=== PATIENT | female | born 1930 | race Caucasian/White ===

== ENCOUNTER 2019-11-06 18:10 | Inpatient (IN) | payer MEDICARE, OTHER ==
[~2019-11-06] VITALS: Ht 152.4 cm; Wt 80.3 kg
[2019-11-06 18:50] LABS: BASOPHILS # (AUTO) 0.1 /CMM (0.0-0.2); BASOPHILS % (AUTO) 0.7 % (0.0-2.0); EOSINOPHILS % (AUTO) 1.5 % (0.0-6.0); HEMATOCRIT 42 % (33-45); HEMOGLOBIN 13.7 g/dL (11.5-14.8); LYMPHOCYTES # (AUTO) 2.6 /CMM (0.8-4.8); LYMPHOCYTES % (AUTO) 24.6 % (20.0-44.0); MEAN CORPUSCULAR HGB CONC 33 g/dl (31.0-36.0); MEAN CORPUSCULAR VOLUME 90 fL (82-100); MONOCYTES # (AUTO) 0.6 /CMM (0.1-1.30); MONOCYTES % (AUTO) 5.5 % (2.0-12.0); NEUTROPHILS % (AUTO) 67.7 % (43.0-81.0); PLATELET COUNT (AUTO) 288 /CMM (150-450); WHITE BLOOD COUNT (AUTO) 10.4 K/uL (4.3-11.0)
[2019-11-06 18:57] LABS: CALCIUM, SERUM 9.3 mg/dL (8.5-10.1); CARBON DIOXIDE 27 mmol/L (21-32); CHLORIDE 100 mmol/L (98-107); CREATININE 1.1 mg/dL (0.6-1.3); GLUCOSE 322 mg/dL (74-106); POTASSIUM 4.1 mmol/L (3.5-5.1); SODIUM SERUM 136 mmol/L (136-145); UREA NITROGEN, BLOOD 25 mg/dL (7-18)
[2019-11-06 19:03] LABS: ACETAMINOPHEN < 2 ug/ml (10-30); ALANINE AMINOTRANSFERASE 19 U/L (12-78); ALBUMIN 3.3 g/dL (3.4-5.0); ALCOHOL, BLOOD < 3 mg/dL (0-0); ALKALINE PHOSPHATASE 84 U/L (46-116); ASPARTATE AMINOTRANSFERASE 14 U/L (15-37); BILIRUBIN,DIRECT 0.1 mg/dL (0.0-0.2); BILIRUBIN,TOTAL 0.2 mg/dL (0.2-1.0); SALICYLATE 1.5 mg/dL (2.8-20.0); TOTAL PROTEIN, SERUM 7.2 g/dL (6.4-8.2)
[2019-11-06 19:26] LABS: APPEARANCE,URINE Clear (CLEAR); BILIRUBIN,URINE Negative (NEGATIVE); BLOOD, URINE Negative Ery/uL (NEGATIVE); COLOR,URINE Yellow (YELLOW); KETONES,URINE Negative (NEGATIVE); LEUKOCYTE ESTERASE ,URINE Small (NEGATIVE); NITRITE, URINE Negative (NEGATIVE); PH,URINE 5.5 (5.0-8.0); PROTEIN,URINE Negative (NEGATIVE); UGLUCOSE 500 MG/DL mg/dL (NEGATIVE); UROBILINOGEN,URINE 0.2 EU/dL (0.2)
[2019-11-06 19:36] LABS: HYALINE CASTS, URINE Few /LPF (None Seen); SQUAMOUS EPITHELIAL CELL,UR Few /HPF (None Seen)
[2019-11-06 19:37] LABS: BACTERIA,URINE Few /HPF (None Seen); RBC,URINE 0-2 /HPF (0-2)
[2019-11-06] MEDS ORDERED: INSULIN REGULAR, HUMAN 100 UNIT/ML 10 ML VIAL SQ ONE (20:30)
[2019-11-06 22:30] VITALS: BP 119/78
[2019-11-06] MEDS ORDERED: MAGNESIUM HYDROXIDE 30 ML UDC PO PRN (22:30)
[2019-11-06] MEDS ORDERED: TEMAZEPAM 7.5 MG CAPSULE PO PRN (22:30)
[2019-11-06] MEDS ORDERED: MAG HYDROX/AL HYDROX/SIMETH 30 ML UDC PO PRN (22:30)
[2019-11-06] MEDS ORDERED: BLOOD SUGAR DIAGNOSTIC 1 EACH STRIP IN ONE (22:30)
[2019-11-06] MEDS ORDERED: LORAZEPAM 0.5 MG TABLET PO PRN (22:30)
[2019-11-06] MEDS ORDERED: LATA2.5D7 OP (23:41)
[2019-11-06] MEDS ORDERED: MEMA10TA56 PO (23:41)
[2019-11-06] MEDS ORDERED: GALA12TA PO (23:41)
[2019-11-06] MEDS ORDERED: INSU100V11 (23:41)
[2019-11-06] MEDS ORDERED: BRIM10DR (23:41)
[2019-11-06] MEDS ORDERED: INSU100V10 SQ (23:41)
[2019-11-06] MEDS ORDERED: LEVO112T7 PO (23:41)
[2019-11-06] MEDS ORDERED: FURO20TA4 PO (23:41)
[2019-11-07] MEDS ORDERED: DEXTROSE 50%-WATER 50 ML DISP.SYRIN IV PRN
[2019-11-07] MEDS ORDERED: INSULIN DETEMIR 100 UNIT/ML CARTRIDGE SQ SCH
[2019-11-07] MEDS: CEPHALEXIN MONOHYDRATE 500 MG CAPSULE PO SCH ×3 (01:40→21:31)
[2019-11-07 08:00] VITALS: BP 134/60
[2019-11-07] MEDS: BLOOD SUGAR DIAGNOSTIC 1 EACH STRIP IN SCH ×4 (08:12→21:39)
[2019-11-07] MEDS: INSULIN REGULAR, HUMAN 100 UNIT/ML 3 ML VIAL SQ PRN ×4 (08:18→22:53)
[2019-11-07] MEDS: BRIMONIDINE TARTRATE OPHT SOLN 5 ML BOTTLE EACHEYE SCH ×3 (09:00→18:26)
[2019-11-07 10:23] LABS: THYROID STIMULATING HORMONE 9.359 uIU/mL (0.358-3.74)
[2019-11-07] MEDS: LEVOTHYROXINE SODIUM 112 MCG TABLET PO SCH (13:13)
[2019-11-07] MEDS: FUROSEMIDE 20 MG TABLET PO SCH (13:14)
[2019-11-07] MEDS: MEMANTINE HCL 5 MG TABLET PO SCH (13:14)
[2019-11-07] MEDS: GALANTAMINE HYDROBROMIDE 4 MG TABLET PO SCH ×2 (13:15→18:27)
[2019-11-07] MEDS: ACETAMINOPHEN 325 MG TABLET PO PRN (13:23)
[2019-11-07 16:00] VITALS: BP 121/58
[2019-11-07 20:00] VITALS: BP 120/62
[2019-11-07 20:39] VITALS: BP 120/62
[2019-11-07] MEDS: DIVALPROEX SODIUM 125 MG TABLET.DR PO SCH (21:31)
[2019-11-07] MEDS: LATANOPROST EYE DROP 0.005% 2.5 ML BOTTLE EACHEYE SCH (21:31)
[2019-11-07] MEDS: INSULIN GLARGINE, 100 UNIT/ML CARTRIDGE SQ SCH (21:57)
[2019-11-08] MEDS: ACETAMINOPHEN 325 MG TABLET PO PRN ×2 (02:09→17:33)
[2019-11-08] MEDS: BLOOD SUGAR DIAGNOSTIC 1 EACH STRIP IN SCH ×4 (08:16→21:16)
[2019-11-08] MEDS: INSULIN REGULAR, HUMAN 100 UNIT/ML 3 ML VIAL SQ PRN ×3 (08:44→21:18)
[2019-11-08] MEDS: BRIMONIDINE TARTRATE OPHT SOLN 5 ML BOTTLE EACHEYE SCH ×3 (08:46→18:22)
[2019-11-08] MEDS: GALANTAMINE HYDROBROMIDE 4 MG TABLET PO SCH ×2 (08:46→18:22)
[2019-11-08] MEDS: CEPHALEXIN MONOHYDRATE 500 MG CAPSULE PO SCH ×2 (08:46→21:15)
[2019-11-08] MEDS: DIVALPROEX SODIUM 125 MG TABLET.DR PO SCH ×2 (08:46→21:15)
[2019-11-08] MEDS: MEMANTINE HCL 5 MG TABLET PO SCH (08:47)
[2019-11-08] MEDS: LEVOTHYROXINE SODIUM 112 MCG TABLET PO SCH (08:47)
[2019-11-08 08:56] VITALS: BP 104/58
[2019-11-08] MEDS: FUROSEMIDE 20 MG TABLET PO SCH (09:00)
[2019-11-08 16:00] VITALS: BP 120/52
[2019-11-08 20:00] VITALS: BP 106/54
[2019-11-08 20:57] VITALS: BP 106/54
[2019-11-08] MEDS: LATANOPROST EYE DROP 0.005% 2.5 ML BOTTLE EACHEYE SCH (21:16)
[2019-11-08] MEDS: INSULIN GLARGINE, 100 UNIT/ML CARTRIDGE SQ SCH (21:20)
[2019-11-09] MEDS: ACETAMINOPHEN 325 MG TABLET PO PRN ×3 (03:23→15:36)
[2019-11-09 08:00] VITALS: BP 125/60
[2019-11-09] MEDS: DIVALPROEX SODIUM 125 MG TABLET.DR PO SCH ×2 (08:22→21:34)
[2019-11-09] MEDS: CEPHALEXIN MONOHYDRATE 500 MG CAPSULE PO SCH ×2 (08:22→21:34)
[2019-11-09] MEDS: LEVOTHYROXINE SODIUM 112 MCG TABLET PO SCH (08:22)
[2019-11-09] MEDS: MEMANTINE HCL 5 MG TABLET PO SCH (08:23)
[2019-11-09] MEDS: BLOOD SUGAR DIAGNOSTIC 1 EACH STRIP IN SCH ×4 (08:23→21:34)
[2019-11-09] MEDS: FUROSEMIDE 20 MG TABLET PO SCH (08:23)
[2019-11-09] MEDS: BRIMONIDINE TARTRATE OPHT SOLN 5 ML BOTTLE EACHEYE SCH ×3 (08:24→17:25)
[2019-11-09] MEDS: GALANTAMINE HYDROBROMIDE 4 MG TABLET PO SCH ×2 (08:25→17:26)
[2019-11-09] MEDS: INSULIN REGULAR, HUMAN 100 UNIT/ML 3 ML VIAL SQ PRN ×4 (08:30→21:34)
[2019-11-09] MEDS: LIDOCAINE 5% (PATCH) 1 EA PATCH TP SCH (12:33)
[2019-11-09 16:00] VITALS: BP 109/60
[2019-11-09 20:36] VITALS: BP 128/58
[2019-11-09] MEDS: INSULIN GLARGINE, 100 UNIT/ML CARTRIDGE SQ SCH (21:32)
[2019-11-09] MEDS: LATANOPROST EYE DROP 0.005% 2.5 ML BOTTLE EACHEYE SCH (21:34)
[2019-11-10] MEDS: BLOOD SUGAR DIAGNOSTIC 1 EACH STRIP IN SCH ×4 (07:30→21:42)
[2019-11-10 08:00] VITALS: BP 106/59
[2019-11-10] MEDS: DIVALPROEX SODIUM 125 MG TABLET.DR PO SCH ×2 (08:43→21:31)
[2019-11-10] MEDS: MEMANTINE HCL 5 MG TABLET PO SCH (08:43)
[2019-11-10] MEDS: CEPHALEXIN MONOHYDRATE 500 MG CAPSULE PO SCH ×2 (08:43→21:31)
[2019-11-10] MEDS: LEVOTHYROXINE SODIUM 112 MCG TABLET PO SCH (08:43)
[2019-11-10] MEDS: BRIMONIDINE TARTRATE OPHT SOLN 5 ML BOTTLE EACHEYE SCH ×3 (08:44→16:17)
[2019-11-10] MEDS: FUROSEMIDE 20 MG TABLET PO SCH (08:44)
[2019-11-10] MEDS: GALANTAMINE HYDROBROMIDE 4 MG TABLET PO SCH ×2 (08:45→16:18)
[2019-11-10] MEDS: LIDOCAINE 5% (PATCH) 1 EA PATCH TP SCH (12:01)
[2019-11-10] MEDS: INSULIN REGULAR, HUMAN 100 UNIT/ML 3 ML VIAL SQ PRN ×3 (12:34→22:18)
[2019-11-10 16:00] VITALS: BP 127/59
[2019-11-10 20:00] VITALS: BP 142/50
[2019-11-10 20:29] VITALS: BP 142/50
[2019-11-10] MEDS: LATANOPROST EYE DROP 0.005% 2.5 ML BOTTLE EACHEYE SCH (21:32)
[2019-11-10] MEDS: INSULIN GLARGINE, 100 UNIT/ML CARTRIDGE SQ SCH (21:44)
[2019-11-10] MEDS: ACETAMINOPHEN 325 MG TABLET PO PRN (22:20)
[2019-11-11] MEDS: BLOOD SUGAR DIAGNOSTIC 1 EACH STRIP IN SCH ×4 (07:50→21:15)
[2019-11-11] MEDS: LEVOTHYROXINE SODIUM 112 MCG TABLET PO SCH (07:56)
[2019-11-11 08:00] VITALS: BP 109/60
[2019-11-11] MEDS: INSULIN REGULAR, HUMAN 100 UNIT/ML 3 ML VIAL SQ PRN ×4 (08:07→21:17)
[2019-11-11] MEDS: BRIMONIDINE TARTRATE OPHT SOLN 5 ML BOTTLE EACHEYE SCH ×3 (08:51→16:47)
[2019-11-11] MEDS: FUROSEMIDE 20 MG TABLET PO SCH (08:51)
[2019-11-11] MEDS: CEPHALEXIN MONOHYDRATE 500 MG CAPSULE PO SCH ×2 (08:51→21:04)
[2019-11-11] MEDS: MEMANTINE HCL 5 MG TABLET PO SCH (08:51)
[2019-11-11] MEDS: DIVALPROEX SODIUM 125 MG TABLET.DR PO SCH ×2 (08:51→21:04)
[2019-11-11] MEDS: GALANTAMINE HYDROBROMIDE 4 MG TABLET PO SCH ×2 (08:52→16:47)
[2019-11-11] MEDS: LIDOCAINE 5% (PATCH) 1 EA PATCH TP SCH (11:31)
[2019-11-11] MEDS: ACETAMINOPHEN 325 MG TABLET PO PRN (13:18)
[2019-11-11 16:00] VITALS: BP 127/58
[2019-11-11 20:20] VITALS: BP 127/58
[2019-11-11 20:22] VITALS: BP 100/54
[2019-11-11] MEDS: LATANOPROST EYE DROP 0.005% 2.5 ML BOTTLE EACHEYE SCH (21:04)
[2019-11-11] MEDS: INSULIN GLARGINE, 100 UNIT/ML CARTRIDGE SQ SCH (21:20)
[2019-11-12] MEDS: BLOOD SUGAR DIAGNOSTIC 1 EACH STRIP IN SCH ×4 (07:55→21:17)
[2019-11-12] MEDS: INSULIN REGULAR, HUMAN 100 UNIT/ML 3 ML VIAL SQ PRN ×4 (07:57→21:22)
[2019-11-12 08:00] VITALS: BP 127/81
[2019-11-12] MEDS: MEMANTINE HCL 5 MG TABLET PO SCH (08:36)
[2019-11-12] MEDS: BRIMONIDINE TARTRATE OPHT SOLN 5 ML BOTTLE EACHEYE SCH ×3 (08:36→17:32)
[2019-11-12] MEDS: CEPHALEXIN MONOHYDRATE 500 MG CAPSULE PO SCH ×2 (08:36→21:11)
[2019-11-12] MEDS: DIVALPROEX SODIUM 125 MG TABLET.DR PO SCH ×2 (08:36→21:11)
[2019-11-12] MEDS: FUROSEMIDE 20 MG TABLET PO SCH (08:36)
[2019-11-12] MEDS: LEVOTHYROXINE SODIUM 112 MCG TABLET PO SCH (08:37)
[2019-11-12] MEDS: GALANTAMINE HYDROBROMIDE 4 MG TABLET PO SCH ×2 (08:40→17:32)
[2019-11-12] MEDS: LIDOCAINE 5% (PATCH) 1 EA PATCH TP SCH (12:34)
[2019-11-12] MEDS: ACETAMINOPHEN 325 MG TABLET PO PRN (15:48)
[2019-11-12 16:00] VITALS: BP 132/52
[2019-11-12 20:46] VITALS: BP 116/54
[2019-11-12] MEDS: LATANOPROST EYE DROP 0.005% 2.5 ML BOTTLE EACHEYE SCH (21:13)
[2019-11-12] MEDS: INSULIN GLARGINE, 100 UNIT/ML CARTRIDGE SQ SCH (21:26)
[2019-11-13 08:00] VITALS: BP 107/63
[2019-11-13] MEDS: BLOOD SUGAR DIAGNOSTIC 1 EACH STRIP IN SCH ×4 (08:02→21:54)
[2019-11-13] MEDS: LEVOTHYROXINE SODIUM 112 MCG TABLET PO SCH (08:48)
[2019-11-13] MEDS: BRIMONIDINE TARTRATE OPHT SOLN 5 ML BOTTLE EACHEYE SCH ×3 (09:23→17:04)
[2019-11-13] MEDS: MEMANTINE HCL 5 MG TABLET PO SCH (09:24)
[2019-11-13] MEDS: GALANTAMINE HYDROBROMIDE 4 MG TABLET PO SCH ×2 (09:24→17:05)
[2019-11-13] MEDS: FUROSEMIDE 20 MG TABLET PO SCH (09:24)
[2019-11-13] MEDS: DIVALPROEX SODIUM 125 MG TABLET.DR PO SCH ×2 (09:24→21:28)
[2019-11-13] MEDS: INSULIN REGULAR, HUMAN 100 UNIT/ML 3 ML VIAL SQ PRN ×4 (09:25→21:53)
[2019-11-13] MEDS: LIDOCAINE 5% (PATCH) 1 EA PATCH TP SCH (12:41)
[2019-11-13 16:00] VITALS: BP 117/54
[2019-11-13 20:43] VITALS: BP 116/64
[2019-11-13] MEDS: LATANOPROST EYE DROP 0.005% 2.5 ML BOTTLE EACHEYE SCH (21:28)
[2019-11-13] MEDS: INSULIN GLARGINE, 100 UNIT/ML CARTRIDGE SQ SCH (21:50)
[2019-11-14] MEDS: BLOOD SUGAR DIAGNOSTIC 1 EACH STRIP IN SCH ×4 (07:30→21:39)
[2019-11-14 08:00] VITALS: BP 111/59
[2019-11-14] MEDS: LEVOTHYROXINE SODIUM 112 MCG TABLET PO SCH (08:46)
[2019-11-14] MEDS: MEMANTINE HCL 5 MG TABLET PO SCH (08:47)
[2019-11-14] MEDS: GALANTAMINE HYDROBROMIDE 4 MG TABLET PO SCH ×2 (08:48→16:27)
[2019-11-14] MEDS: FUROSEMIDE 20 MG TABLET PO SCH (08:48)
[2019-11-14] MEDS: BRIMONIDINE TARTRATE OPHT SOLN 5 ML BOTTLE EACHEYE SCH ×3 (08:48→16:27)
[2019-11-14] MEDS: DIVALPROEX SODIUM 125 MG TABLET.DR PO SCH ×2 (08:48→21:11)
[2019-11-14] MEDS: INSULIN REGULAR, HUMAN 100 UNIT/ML 3 ML VIAL SQ PRN ×3 (12:42→21:42)
[2019-11-14] MEDS: LIDOCAINE 5% (PATCH) 1 EA PATCH TP SCH (12:56)
[2019-11-14 16:00] VITALS: BP 131/62
[2019-11-14 20:18] VITALS: BP 149/60
[2019-11-14] MEDS: LATANOPROST EYE DROP 0.005% 2.5 ML BOTTLE EACHEYE SCH (21:12)
[2019-11-14] MEDS: INSULIN GLARGINE, 100 UNIT/ML CARTRIDGE SQ SCH (21:41)
[2019-11-15] MEDS: BLOOD SUGAR DIAGNOSTIC 1 EACH STRIP IN SCH (07:43)
[2019-11-15 08:00] VITALS: BP 138/59
[2019-11-15] MEDS: LEVOTHYROXINE SODIUM 112 MCG TABLET PO SCH (08:11)
[2019-11-15] MEDS: DIVALPROEX SODIUM 125 MG TABLET.DR PO SCH (08:11)
[2019-11-15] MEDS: FUROSEMIDE 20 MG TABLET PO SCH (08:11)
[2019-11-15] MEDS: MEMANTINE HCL 5 MG TABLET PO SCH (08:11)
[2019-11-15] MEDS: BRIMONIDINE TARTRATE OPHT SOLN 5 ML BOTTLE EACHEYE SCH (08:14)
[2019-11-15] MEDS: INSULIN REGULAR, HUMAN 100 UNIT/ML 3 ML VIAL SQ PRN (08:16)
[2019-11-15] MEDS: GALANTAMINE HYDROBROMIDE 4 MG TABLET PO SCH (08:24)
[2019-11-15] MEDS ORDERED: INSULIN GLARGINE, 100 UNIT/ML CARTRIDGE SQ SCH (09:00)
== END 2019-11-15 11:30 | DRG 885 ==
LOC: ER 18:20 → GPS 21:33
PROVIDERS: ADMIT Psychiatry & Neurology Psychiatry
DX: F39 Unspecified mood [affective] disorder (principal); E11.65 Type 2 diabetes mellitus with hyperglycemia; F23 Brief psychotic disorder; E03.9 Hypothyroidism, unspecified; F03.90 Unspecified dementia, unspecified severity, without behavioral disturbance, psychotic disturbance, mood disturbance, and anxiety; M19.90 Unspecified osteoarthritis, unspecified site; K21.9 Gastro-esophageal reflux disease without esophagitis; F32.9 Major depressive disorder, single episode, unspecified; G89.29 Other chronic pain; M79.621 Pain in right upper arm; E66.9 Obesity, unspecified; Z68.34 Body mass index [BMI] 34.0-34.9, adult
CPT/HCPCS: 36415; 80048-TC; 80061-TC; 80076-TC; 80305; 81000-TC; 82962-TC; 84439-TC; 84443-TC; 85025-TC; 87081-TC; 87086-TC; 97116-TC; 97530-TC; G0480; J1815